=== PATIENT | male | born 1945 | race Caucasian/White ===

== ENCOUNTER 2018-09-21 07:15 | Inpatient (IN) | payer OTHER ==
[2018-09-19 11:16] LABS: PLATELET COUNT 208 10^3/uL (150-400)
--- NOTE | 2018-09-21 06:39 | PDHPUP ---
History & Physical Update H&P update statement: This history and physical update is based on an assessment of the patient which was completed after admission or registration (within 24 hours), but prior to the surgery/procedure. H&P update: H&P reviewed & patient examined, no change in patient's condition since H&P completed
--- NOTE | 2018-09-21 10:04 | PDANEPAE ---
ANE History of Present Illness back pain ANE Past Medical History - Cardiovascular History Hx Hypertension: No Hx Arrhythmias: No Hx Chest Pain: No Hx Coronary Artery / Peripheral Vascular Disease: No Hx CHF / Valvular Disease: No Hx Palpitations: No Cardiovascular History Comment: has been told occastionally has irregular heart beats but nothing followed or treated - Pulmonary History Hx COPD: No Hx Asthma/Reactive Airway Disease: No Hx Recent Upper Respiratory Infection: No Hx Oxygen in Use at Home: No Hx Sleep Apnea: No Sleep Apnea Screening Result - Last Documented: Negative Pulmonary History Comment: hx of pneumonia x 2 - Neurologic History Hx Cerebrovascular Accident: No Hx Seizures: No Hx Dementia: No Neurologic History Comment: hx of eye nystagmus in the past. neuropathic pain, numbness, tingling right leg, often uses crutches; left leg generally okay but does get occasional shooting pain down leg, bottom of left foot extremly painful - Endocrine History Hx Diabetes: No Hypothyroid: No Hyperthyroid: No Obesity: mild - Renal History Hx Renal Disorders: Yes Renal History Comment: enlarged prostate w/urinary retention - does need to self cath. Hx UTI's - Liver History Hx Hepatic Disorders: No - Neurological & Psychiatric Hx Hx Neurological and Psychiatric Disorders: Yes Neurological / Psychiatric History Comment: mild depression - Cancer History Hx Cancer: No - Congenital Disorder History Hx Congenital Disorders: No - GI History GERD: no Hx Gastrointestinal Disorders: No - Other Health History Other Health History: wears glasses for reading - Chronic Pain History Chronic Pain: Yes (low back, legs/feet) - Surgical History Prior Surgeries: C5-6 cervical fusion. punctured lung repair ANE Review of Systems Review of Systems: - Exercise capacity Exercise capacity: >=4 METS METS (RN): 6 METS ANE Patient History - Allergies Allergies/Adverse Reactions: Penicillins Allergy (Verified 08/26/18 09:49) Rash - Home Medications Home medications: home medication list seen and reviewed Home Medications: Acetamn/Diphenhydramine 500/25 [Tylenol PM (*)] 1 each PO HS PRN 08/26/18 [Last Taken 09/18/18] Herbals/Supplements -Info Only 1 ea PO DAILY 08/26/18 [Last Taken 09/19/18] oxyCODONE/APAP 5/325 [Percocet 5/325 (*)] 1 tab PO BID PRN 08/26/18 [Last Taken 09/20/18] - NPO status NPO Status: no food or drink >8 hours - Anes Hx Anes Hx: no prior problems - Smoking Hx Smoking Status: Former smoker - Family Anes Hx Family Hx Anesthesia Complications: none ANE Labs/Vital Signs - Labs Result Diagrams: 09/19/18 10:51 - Vital Signs Vital Signs: reviewed preoperatively; see RN documention for details Height: 185.42 cm Weight: 98.883 kg ANE Physical Exam - Airway Neck exam: FROM Mallampati Score: Class 2 Mouth exam: normal dental/mouth exam - Pulmonary Pulmonary: no respiratory distress - Cardiovascular Cardiovascular: regular rate and rhythym - ASA Status ASA Status: II ANE Anesthesia Plan Anesthesia Plan: general endotracheal anesthesia Lines/Monitors: arterial line
[2018-09-21] MEDS ORDERED: PROPOFOL/EMULSION 500 MG/50 ML BOTTLE IV ONE ×3 (12:27→14:42)
[2018-09-21] MEDS ORDERED: DEXAMETHASONE 4 MG/ML VIAL ONE ×2 (12:36)
[2018-09-21] MEDS ORDERED: ROCURONIUM 50 MG/5 ML VIAL ONE (12:36)
[2018-09-21] MEDS ORDERED: LIDOCAINE 2% 5 ML SDV ONE (12:36)
[2018-09-21] MEDS ORDERED: ONDANSETRON 4 MG/2 ML VIAL ONE (12:36)
[2018-09-21] MEDS ORDERED: CHLORHEXIDINE GLUC HIBICLENS 118 ML BTL TP ONE (12:39)
[2018-09-21] MEDS ORDERED: THROMBIN (BOVINE) 5,000 UNIT VIAL TP ONE (12:39)
[2018-09-21] MEDS ORDERED: BUPIVACAINE/EPI 0.25% 30 ML SDV ONE (12:40)
[2018-09-21] MEDS ORDERED: BACITRACIN 50,000 UNITS/10 ML SYR IRR ONE ×2 (12:42→16:11)
[2018-09-21] MEDS ORDERED: GABAPENTIN 300 MG CAP PO ONE (12:49)
[2018-09-21] MEDS ORDERED: ACETAMINOPHEN 500 MG TAB PO ONE (12:49)
[2018-09-21] MEDS ORDERED: ceFAZolin 2 GM/DEXTROSE 100 ML IV ONE (12:49)
[2018-09-21] MEDS ORDERED: LIDOCAINE 1% 2 ML INJ ID PRN (12:50)
[2018-09-21] MEDS ORDERED: LR 1,000 ML IV ONE (12:50)
[2018-09-21] MEDS ORDERED: MIDAZOLAM 2 MG/2 ML VIAL IVP ONE (13:27)
[2018-09-21] MEDS ORDERED: HYDROmorphONE/DILAUDID 6 MG/30 ML PCA IV PRN (13:32)
[2018-09-21] MEDS ORDERED: MIDAZOLAM 2 MG/2 ML VIAL ONE (13:32)
[2018-09-21] MEDS ORDERED: ACETAMN/DIPHENHYDRAMINE 500/25MG TAB PO PRN (13:32)
[2018-09-21] MEDS ORDERED: HYDROCODONE/APAP 5/325 TAB PO PRN (13:32)
[2018-09-21] MEDS ORDERED: ONDANSETRON DISINTEGRATING 4 MG TAB PO PRN (13:32)
[2018-09-21] MEDS ORDERED: NALOXONE HCL 0.4 MG/ML INJ IVP PRN ×2 (13:32→15:38)
[2018-09-21] MEDS ORDERED: diphenhydrAMINE 25 MG CAP PO PRN (13:32)
[2018-09-21] MEDS ORDERED: ONDANSETRON 4 MG/2 ML VIAL IVP PRN (13:32)
[2018-09-21] MEDS ORDERED: LACTULOSE 20 GM/30 ML UDCUP PO PRN (13:32)
[2018-09-21] MEDS ORDERED: POLYETHYLENE GLYCOL 3350 17 GM PKT PO PRN (13:32)
[2018-09-21] MEDS ORDERED: HYDROmorphONE/DILAUDID 1 MG/ML INJ IVP PRN (13:32)
[2018-09-21] MEDS ORDERED: BISACODYL 10 MG SUPP PR PRN (13:32)
[2018-09-21] MEDS ORDERED: MAGNESIUM HYDROXIDE 30 ML UDCUP PO PRN (13:32)
[2018-09-21] MEDS ORDERED: fentaNYL 250 MCG/5 ML INJ ONE (13:40)
[2018-09-21] MEDS ORDERED: NS 1,000 ML IV SCH (13:45)
--- NOTE | 2018-09-21 13:51 | PDMN ---
Medical Necessity Medical necessity: Pt meets IP criteria as of 09/21/2018 per and [facility] S-820 ( Lumbar fusion); Medicare IP only procedure
[2018-09-21] MEDS ORDERED: PHENYLEPHRINE HCL 100 MCG/ML SYR ONE (14:37)
[2018-09-21] MEDS ORDERED: ePHEDrine SULFATE 25 MG/5 ML SYR ONE (15:10)
[2018-09-21] MEDS ORDERED: PHENYLEPHRINE HCL 100 MCG/ML SYR IVP PRN (15:38)
[2018-09-21] MEDS ORDERED: oxyCODONE IR 5 MG TAB PO PRN (15:38)
[2018-09-21] MEDS ORDERED: LR 500 ML IV PRN (15:38)
[2018-09-21] MEDS ORDERED: HYDROmorphONE/DILAUDID 2 MG/ML INJ IVP PRN (15:38)
[2018-09-21] MEDS ORDERED: PROMETHAZINE HCL 25 MG/ML INJ IVP PRN (15:38)
[2018-09-21] MEDS ORDERED: ALBUTEROL 3 ML DEYVIAL IH PRN (15:38)
[2018-09-21] MEDS ORDERED: DIAZEPAM 5 MG/ML 1 ML SYR IVP PRN (15:38)
[2018-09-21] MEDS ORDERED: LABETALOL HCL 20 MG/4 ML INJ IVP PRN (15:38)
[2018-09-21] MEDS ORDERED: ACETAMINOPHEN 500 MG TAB PO PRN (15:38)
[2018-09-21] MEDS ORDERED: METOCLOPRAMIDE 10 MG/2 ML VIAL IVP PRN (15:38)
[2018-09-21] MEDS ORDERED: MEPERIDINE 25 MG/0.5 ML AMP IVP PRN (15:38)
[2018-09-21] MEDS ORDERED: fentaNYL 100 MCG/2 ML INJ IVP PRN (15:38)
[2018-09-21] MEDS ORDERED: HYDROmorphONE/DILAUDID 2 MG/ML INJ ONE (15:44)
[2018-09-21] MEDS ORDERED: PROPOFOL 200 MG/20 ML VIAL ONE ×3 (16:46→17:31)
--- NOTE | 2018-09-21 18:19 | POSTOPPROG ---
Post Op Note Date of Operation: 09/21/18 Surgeon: Belinda Vázquez Supervisor Cytology: AMA Ariza Anesthesiologist: MD Angelo Anesthesia: GET(General Endotracheal), Local (Specify) Pre-op Diagnosis: lumbar stenosis L3/4 L4/5 Post-op Diagnosis: lumbar stenosis L3/4 and L4/5 Indication: LE pain with LLE>RLE pain Procedure: TLIF L3/4 and L4/5 Findings: see op report Inf/Abcess present in the surg proc area at time of surgery?: No Depth: Deep Incisional (Fascial) EBL: 100-500 Total fluids administered: see anesthesia record Complications: none Drains: Butch Hatfield
--- NOTE | 2018-09-21 18:23 | SOAPPROG ---
SOAP Progress Note Assessment/Plan: Post Op Visit: S: Awake and alert. Pt with expected lower back pain O: AFVSS/PERRLA/EOMI no droop CN 2-12 grossly intact SAUL x [address] A/P: 72 yo male that is s/p TLIF L3/4 and L4/5 -orders in place -call with any questions or concerns -take medications as directed -wear brace as directed -call with any questions or concerns Objective: Vital Signs Temp Pulse Resp BP Pulse Ox 36.6 C 77 18 175/101 H 96 09/21/18 12:54 09/21/18 12:54 09/21/18 12:54 09/21/18 12:54 09/21/18 12:54 Laboratory Results 09/19/18 10:51 ICD10 Worksheet Patient Problems: Problems Problem Status Onset Arthrodesis status Acute Lumbar radicular pain Acute Lumbar stenosis Acute - ICD10 Problem Qualifiers (1) Lumbar stenosis Qualifiers: Neurogenic claudication status: without neurogenic claudication Qualified Code(s): M48.061 - Spinal stenosis, lumbar region without neurogenic claudication (2) Lumbar radicular pain (3) Arthrodesis status
--- NOTE | 2018-09-21 18:52 | POSTANESTH ---
Post Anesthetic Evaluation Cardiovascular Status: Normal, Stable Respiratory Status: Normal, Stable Level of Consciousness/Mental Status: Can Participate in Eval Pain Control: Adequate, Prn Tx Ordered Nausea/Vomiting Control: Adequate, Prn Tx Ordered Complications Possibly Related to Anesthesia: None Noted
--- NOTE | 2018-09-21 19:19 | GOP ---
DATE OF OPERATION: 09/21/2018 SURGEON: Cherrie Vázquez MD NEUROSURGEON: Cherrie Vázquez MD TOWER HAND: Bharat Ariza PA-C. PREOPERATIVE DIAGNOSIS: Lumbar spondylolisthesis with severe foraminal stenosis right L4-5 with a ri ght L4 radiculopathy, left lateral recess stenosis, left foraminal stenosis, and a left-sided radicul opathy L3-4, spinal stenosis L4-5. POSTOPERATIVE DIAGNOSIS: Lumbar spondylolisthesis with severe foraminal stenosis right L4-5 with a r ight L4 radiculopathy, left lateral recess stenosis, left foraminal stenosis, and a left-sided radicu lopathy L3-4, spinal stenosis L4-5. PROCEDURE PERFORMED: Posterior lateral and intervertebral arthrodesis with bilateral decompression a t L3-4, L4-5 with a right-sided transforaminal lumbar interbody fusion at L4-5 and a left-sided trans foraminal lumbar interbody fusion at L3-4 (08059, 42680), posterior segmental instrumentation at L3, L4, L5, same incision bone graft harvest, microscope, placement of biomechanical intervertebral devic e L3-4, L4-5 (50918 x2). FINDINGS: Consistent with the diagnosis. SPECIMENS: None. ESTIMATED BLOOD LOSS: 350 cc. INDICATIONS: The patient had terrible bilateral lumbosacral radiculopathy, but a longstanding histor y of right-sided pain that is relentless and unresponsive to conservative measures with severe right foraminal at L4-5 with spondylolisthesis at that level and complete collapse, as well as a large fora estephania disk prolapse at that level crushing the right L4 nerve root between the pedicle of L4 and the disk at L4-5. He has on interval MRI developed more severe left lateral recess stenosis at L3-4 and has some left foraminal stenosis at that level, and I suggested a 2-level instrumented fusion at L3-4 , L4-5 to manage his bilateral lumbosacral radiculopathy. The risk of screw and hardware malposition , malfunction was discussed. He knew there was risk of CSF leak, nerve injury, continued symptoms. He knew surgery might not even work. He knew there was risk of pseudoarthrosis, as well as the possi ble need for revision surgery, as well as infection. He wanted to proceed despite these known risks. DESCRIPTION OF PROCEDURE: The patient was taken to the operating room, placed in supine position. G eneral anesthesia was begun. He was flipped prone onto the Butch table. Care was taken to pad all points of contact. His back was sterilely prepped and draped in the usual fashion. A localizing x- ray taken. We made a midline incision. Our initial incision was about 6 cm in length. The subcutaneous tissue was dissected using Bovie cautery down to the fascia and a subperiosteal dissection was made down the inferior lamina of L2, the lamina of L3, 4, and L5 was exposed. Self-retaining retractor was placed . We shot a localizing x-ray. We then denuded and removed the hypertrophic facets bilaterally at L3 -4, L4-5. We preserved the L2-3 facet joint. We attached the [place] reference frame and then performed an O-arm spin. We used stereotaxy to plac e bilateral pedicle screws at L3, L4, and L5, and they all stimulated at acceptable levels. We verif ied their position with 3 dimensional imaging on the O arm system. They were in great position. We then took a 65 mm zoltan on the right and a 60 mm zoltan on the left, bent the rods and placed down over th e tulips. We distracted on the right at L4-5 and a little bit more on the left at L3-4 to open the n eural foramen at each of those levels. We final tightened the cap screws according to company specif ication. We then denuded and removed all the soft tissue of the bone from the L3, L4, and rostral L5 spinous process. We then harvested the complete L4 spinous process. We harvested the inferior L3 s pinous process. We then drilled bilateral laminectomies at L3-4, L4-5. We performed complete right- sided facetectomies at L4-5 and a complete left sided facetectomy at L3-4. Under the microscope, we opened the ligamentum flavum and decompressed the thecal sac beginning at th e L4-5 level and working our way rostrally to the L3-4 level. There was really very severe spinal st enosis present and we got great decompressions bilaterally at L3-4. It was more of a struggle to get complete decompression of L4-5 as the hypertrophic facets at L4-5 were very adherent to the dura. T o deal with this, we drilled off the rostral arch of L5, fractured the rostral lamina, and then I pul led it rostrally off the dura and got great separation using this technique. We performed an excellent lateral recess decompression on the patient's left side. We performed a co mplete right-sided facetectomy at L4-5. The exiting L4 nerve root at the L4-5 level was totally eliel hed by foraminal disk. It was totally prolapsed into the nerve, but there was now a more room becaus e we had elevated the L4 pedicle up off the disk. We incised the foraminal disk and then in a subann ular fashion, pulled out a large amount of disk material out of the foramina, itself, relaxing the ex iting L4 nerve root. This is really separate from the TLIF, although we were going to use this acces s to do the TLIF, we did in 2 separate maneuvers. I did this from the patient's left-hand side, reac nathan across into the neural foramina and got a great decompression of the exiting L4 root. I then turned my attention and did a left-sided TLIF at L3-4, removing the 3-4 disk and the cartilagi nous endplate. We roughened the subchondral bone to create arthrodesis at L3-4, and we were now read y for placement of our biomechanical intervertebral device at that level. I then went back to the L4 -5 level where I incised the L4-5 disk and removed the disk completely and the cartilaginous endplate s, roughened the subchondral bone to create arthrodesis there. I sized both of them for placement of our device and chose a 9 mm at L4-5 and an 8 mm expandable device at L3-4. They were both 20 mm in length. I placed a large amount of bone autograft and BMP into each of the disk space. We used 2 mg in the disk spaces, 2 mg posterolaterally. We inserted our devices and expanded them under fluorosc opic guidance, and I was happy with the positioning of the devices. We then decorticated all the remaining posterolateral bone bilaterally to conclude our arthrodesis an d then laid bone autograft and BMP posterolaterally bilaterally, placed a subfascial drain, and then closed the incision in multiple layers using Vicryl sutures. A running PDS was placed in the skin, i tself. The patient was reversed from anesthesia, extubated, and transferred to recovery room in stab le condition. There were no complications. COMPLICATIONS: None. INSTRUMENTATION USED: to betronic Solera 5.5 mm system with expandable Elevate cages at L3-4, L4-5. W e used 9 mm cage at L4-5 and an 8 mm expandable cage at L3-4. /[id number]/MODL
[2018-09-21] MEDS: GABAPENTIN 300 MG CAP PO SCH ×2 (19:48→22:14)
[2018-09-21] MEDS: ACETAMINOPHEN 500 MG TAB PO SCH ×2 (19:48→22:14)
[2018-09-21] MEDS: SENNOSIDES/DOCUSATE SODIUM TAB PO SCH (20:06)
[2018-09-21] MEDS: FAMOTIDINE 20 MG TAB PO SCH (20:06)
[2018-09-21] MEDS: ceFAZolin 2 GM/DEXTROSE 100 ML IV SCH (22:14)
[2018-09-22 05:43] LABS: PLATELET COUNT 205 10^3/uL (150-400)
[2018-09-22] MEDS: ACETAMINOPHEN 500 MG TAB PO SCH ×3 (05:50→22:33)
[2018-09-22] MEDS: GABAPENTIN 300 MG CAP PO SCH ×3 (05:50→21:11)
[2018-09-22] MEDS: ceFAZolin 2 GM/DEXTROSE 100 ML IV SCH (05:51)
--- NOTE | 2018-09-22 07:32 | NEUSURGPN ---
Date of Surgery: 09/21/18 Post Op Day: 1 Assessment/Plan: Assessment: 72 yo male that is s/p TLIF L3/4 and L4/5 POD #1 Plan: -s/p L spine fusion: doing well this am. Legs feel better. Pt with expected lower back pain -pt is not on any pain medications thru night -continue with current pain management -PT/OT ordered -brace when out of bed -orders in place -call with any questions or concerns -take medications as directed -call with any questions or concerns -pt seen by Dr Vázquez Subjective: Awake and alert. NAD. Eating/drinking. No f/c/n/v/d. No other complaints or concerns. Objective: AFVSS/PERRLA/EOMI no droop CN 2-12 grossly intact 5/5 BUE/BLE = CDI MARIANNE in place Neuro Check Frequency: per routine Urinary Catheter in Place: Yes Urinary Catheter Indication: Other (Use Comment) (pt straight caths prior to admit. Will remove today once shows with straight cath equipment) Catheter Insertion Date: 09/21/18 - Physician Discussed Patient with DrScot: Gurpreet Patient Seen by : Gurpreet Neurosurgery Physical Exam - Vitals, I&O, Labs I and O 09/21/18 09/22/18 09/23/18 05:59 05:59 05:59 Intake Total 3810 Output Total 2460 Balance 1350 Weight 102.5 kg Intake: Oral (ml) 680 IV Intake (ml) 2200 IV Infused (ml) 930 Ns 1,000 ml @ 100 mls/hr 930 IV CONT ARABELLA Rx#: [id number] Output: Urine (ml) 1800 Catheter 1800 Estimated Blood Loss (ml) 350 MARIANNE Drain Output (ml) 310 Back [place]ch [place] 310 Vital Signs Temp Pulse Resp BP Pulse Ox 36.4 C 64 16 107/67 100 09/22/18 06:00 09/22/18 06:00 09/22/18 06:00 09/22/18 06:00 09/22/18 06:00 Laboratory Results 09/22/18 05:22 09/22/18 05:22 ICD10 Worksheet Patient Problems: Problems Problem Status Onset Arthrodesis status Acute Lumbar radicular pain Acute Lumbar stenosis Acute - ICD10 Problem Qualifiers (1) Lumbar stenosis Qualifiers: Neurogenic claudication status: without neurogenic claudication Qualified Code(s): M48.061 - Spinal stenosis, lumbar region without neurogenic claudication (2) Lumbar radicular pain (3) Arthrodesis status
[2018-09-22] MEDS: FAMOTIDINE 20 MG TAB PO SCH ×2 (09:01→21:12)
[2018-09-22] MEDS: SENNOSIDES/DOCUSATE SODIUM TAB PO SCH ×2 (09:01→21:12)
--- NOTE | 2018-09-22 09:26 | ASMTCASEMG ---
Living Arrangements What is your living Answers: With Spouse arrangement? Who do you live with? Type Of Residence What kind of residence do Answers: House you live in? Discharge Plan Comments Coordination Status Comments Notes: Patient is a 72yo male who was admitted for a two level TLIF at L34 45 sugical intervention. OT/PT have been ordered. Patient lives in [place]. D/C plan TBD. CM will follow. Date Signed: 09/22/2018 09:25 AM Electronically Signed By:Kalyani James LCSW
[2018-09-22] MEDS: oxyCODONE IR 5 MG TAB PO PRN (21:12)
[2018-09-22] MEDS: ZOLPIDEM TARTRATE 5 MG TAB PO PRN ×2 (22:31→22:32)
[2018-09-23] MEDS: oxyCODONE IR 5 MG TAB PO PRN ×6 (02:56→22:06)
[2018-09-23] MEDS: METHOCARBAMOL 750 MG TAB PO PRN ×3 (02:56→17:21)
--- NOTE | 2018-09-23 05:40 | NEUSURGPN ---
Assessment/Plan: DRAFT!! Assessment: 72 yo male that is s/p TLIF L3/4 and L4/5 POD #2 Plan: -s/p L spine fusion: doing well this am. Some right leg anterior thigh burning Pt with expected lower back pain -continue with current pain management -PT/OT -LSO when out of bed -MARIANNE drain will d/c today - Continue straight cath per patient protocol -call with any questions or concerns Subjective: Pain tolerable with medications Objective: NAD A&Ox3 MAEX4 5/5 and equal on BUE and BLE. Incision c/d/i. Catheter Insertion Date: 09/21/18 - Physician Discussed Patient with : Gurpreet Neurosurgery Physical Exam - Vitals, I&O, Labs I and O 09/21/18 09/22/18 09/23/18 05:59 05:59 05:59 Intake Total 3810 1000 Output Total 2460 3485 Balance 1350 -2485 Weight 102.5 kg Intake: Oral (ml) 680 1000 IV Intake (ml) 2200 IV Infused (ml) 930 Ns 1,000 ml @ 100 mls/hr 930 IV CONT ARABELLA Rx#: [id number] Output: Urine (ml) 1800 3300 Catheter 1800 3300 Estimated Blood Loss (ml) 350 MARIANNE Drain Output (ml) 310 185 Back Butch [place] 310 185 Other: Number of Voids Catheter 1 Vital Signs Temp Pulse Resp BP Pulse Ox 36.8 C 71 12 133/75 H 95 09/23/18 03:03 09/23/18 03:03 09/23/18 03:03 09/23/18 03:03 09/23/18 03:03 Laboratory Results 09/22/18 05:22 09/22/18 05:22 ICD10 Worksheet Patient Problems: Problems Problem Status Onset Arthrodesis status Acute Lumbar radicular pain Acute Lumbar stenosis Acute
[2018-09-23] MEDS: GABAPENTIN 300 MG CAP PO SCH ×3 (06:24→22:02)
[2018-09-23] MEDS: ACETAMINOPHEN 500 MG TAB PO SCH ×2 (06:24→14:19)
[2018-09-23] MEDS: FAMOTIDINE 20 MG TAB PO SCH ×2 (08:29→22:05)
[2018-09-23] MEDS: SENNOSIDES/DOCUSATE SODIUM TAB PO SCH ×2 (08:29→22:05)
[2018-09-23] MEDS ORDERED: PNEUMOC 13-VAL CONJ-DIP CRM/PF 0.5 ML SYR (PREVNAR 13) IM ONE ×3 (12:11→22:00)
--- NOTE | 2018-09-23 12:21 | ASMTCMCOM ---
CM Note CM Note Notes: Pt pre-arranged with [facility], is amenable to home care. Carla with [facility] to meet with pt today. D/c plan of care: Home with [facility] Date Signed: 09/23/2018 12:21 PM Electronically Signed By:ROBBIE Clayton
[2018-09-23] MEDS: ZOLPIDEM TARTRATE 5 MG TAB PO PRN (22:05)
[2018-09-24] MEDS: ACETAMINOPHEN 500 MG TAB PO SCH ×4 (01:53→21:16)
[2018-09-24] MEDS ORDERED: PNEUMOC 13-VAL CONJ-DIP CRM/PF 0.5 ML SYR (PREVNAR 13) IM ONE (01:56)
[2018-09-24] MEDS: oxyCODONE IR 5 MG TAB PO PRN ×5 (02:53→22:35)
[2018-09-24] MEDS: METHOCARBAMOL 750 MG TAB PO PRN ×3 (02:55→18:33)
[2018-09-24] MEDS: GABAPENTIN 300 MG CAP PO SCH ×3 (05:06→21:15)
[2018-09-24] MEDS: SENNOSIDES/DOCUSATE SODIUM TAB PO SCH ×2 (08:08→21:17)
[2018-09-24] MEDS: FAMOTIDINE 20 MG TAB PO SCH ×2 (08:09→21:17)
[2018-09-24] MEDS: ENOXAPARIN 40 MG/0.4 ML SYR SC SCH (08:10)
--- NOTE | 2018-09-24 12:50 | NEUSURGPN ---
Date of Surgery: 09/21/18 Post Op Day: 3 Assessment/Plan: Assessment: 72 yo male that is s/p TLIF L3/4 and L4/5 POD #3 Plan: -s/p L spine fusion: Some bilateral leg anterior thigh burning right >left. Pt with expected lower back pain. Will give more time for leg symptoms to improve -continue with current pain management -PT/OT -LSO when out of bed -Continue straight cath per patient protocol -call with any questions or concerns Discussed patient with Dr Vázquez Subjective: Right quad burning with movement Objective: AxO x4 EVANS x4 5/5 BLE Incision CDI with steri strips Neuro Check Frequency: per routine Urinary Catheter in Place: No Catheter Insertion Date: 09/21/18 - Physician Discussed Patient with : Gurpreet Neurosurgery Physical Exam - Vitals, I&O, Labs I and O 09/23/18 09/24/18 09/25/18 05:59 05:59 05:59 Intake Total 1200 800 350 Output Total 3485 1950 850 Balance -2285 -1150 -500 Intake: Oral (ml) 1200 800 350 Output: Urine (ml) 3300 1950 850 Catheter 3300 1950 850 MARIANNE Drain Output (ml) 185 Back Butch [place] 185 Other: Intake Quantity Yes Yes Yes Sufficient Number of Voids Catheter 1 1 1 Vital Signs Temp Pulse Resp BP Pulse Ox 36.6 C 81 14 134/79 H 94 09/24/18 11:49 09/24/18 11:49 09/24/18 11:49 09/24/18 11:49 09/24/18 11:49 Laboratory Results 09/22/18 05:22 09/22/18 05:22 ICD10 Worksheet Patient Problems: Problems Problem Status Onset Arthrodesis status Acute Lumbar radicular pain Acute Lumbar stenosis Acute
[2018-09-24] MEDS ORDERED: DIAZEPAM 5 MG TAB PO PRN (13:23)
[2018-09-24] MEDS: PREGABALIN 75 MG CAP PO SCH ×2 (18:33→21:18)
[2018-09-24] MEDS: ZOLPIDEM TARTRATE 5 MG TAB PO PRN (22:36)
[2018-09-25] MEDS: ACETAMINOPHEN 500 MG TAB PO SCH ×2 (05:35→13:11)
[2018-09-25] MEDS: GABAPENTIN 300 MG CAP PO SCH ×2 (05:36→13:12)
[2018-09-25] MEDS: oxyCODONE IR 5 MG TAB PO PRN ×2 (05:36→13:13)
--- NOTE | 2018-09-25 08:18 | NEUSURGPN ---
Date of Surgery: 09/21/18 Post Op Day: 4 Assessment/Plan: Assessment: 72 yo male that is s/p TLIF L3/4 and L4/5 POD #4 Plan: -s/p L spine fusion: Some bilateral leg anterior thigh burning right >left which is improved some today. Will continue to give more time for leg symptoms to improve. -continue with current pain management, Lyrica added last night -PT/OT -LSO when out of bed -Continue straight cath per patient protocol -Discharge home with Home Health this afternoon -call with any questions or concerns Discussed patient with Dr Vázquez Subjective: leg pain improved compared to yesterday, able to ambulate better Objective: AxO x4 EVANS x4 5/5 BLE Incision CDI with steri strips Neuro Check Frequency: per routine Urinary Catheter in Place: No Catheter Insertion Date: 09/21/18 - Physician Discussed Patient with : Gurpreet Neurosurgery Physical Exam - Vitals, I&O, Labs I and O 09/24/18 09/25/18 09/26/18 05:59 05:59 05:59 Intake Total 800 350 Output Total 1950 3425 Balance -1150 -3075 Intake: Oral (ml) 800 350 Output: Urine (ml) 1950 3425 Catheter 1950 3425 Other: Intake Quantity Yes Yes Sufficient Number of Voids Catheter 1 1 Number of Stools Catheter 1 Vital Signs Temp Pulse Resp BP Pulse Ox 36.9 C 82 16 126/74 H 95 09/25/18 03:36 09/25/18 03:36 09/25/18 03:36 09/25/18 03:36 09/25/18 03:36 Laboratory Results 09/22/18 05:22 09/22/18 05:22 ICD10 Worksheet Patient Problems: Problems Problem Status Onset Arthrodesis status Acute Lumbar radicular pain Acute Lumbar stenosis Acute
--- NOTE | 2018-09-25 08:24 | PDIAF ---
- Diagnosis Diagnosis: s/p Lumbar fusion Code Status: Full Code - Medication Management Discharge Medications: electronically signed and located in the Home Medication List. PICC Care - Routine: N/A - Orders Services needed: Home Care, Physical Therapy, Occupational Therapy Home Care Face to Face: I certify that this patient was under my care and that I had the required [id number] encounter meeting the encounter requirements on the discharge day. My findings support the fact that the patient is homebound as defined in Home Care Face to Face Continued: CMS Chapter 7 Medicare Benefits Manual 30.1.1 , The condition of the patient is such that there exists a normal inability to leave home and consequently, leaving home would require a considerable and taxing effort. Diet Recommendation: no restrictions on diet Diet Texture: Regular Texture Diet Wound Care Instructions: leave steri strips in place, ok to shower. Do not submerge incision Activity/Weight Bearing Restrictions: Do not lift greater than 10 pounds. No bending or twisting Equipment: Wear brace when out of bed Additional Instructions: No bending or twisting Do not lift greater than 10 pounds Wear brace when out of bed Ok to shower, leave steri strips in place - Follow Up Care Current Providers and Referrals: Zain Shook MD [Primary Care Provider] - Belinda Vázquez MD [Medical Doctor] - follow up in 2 weeks
[2018-09-25 08:35] VITALS: BP 115/75
[2018-09-25] MEDS: SENNOSIDES/DOCUSATE SODIUM TAB PO SCH (09:49)
[2018-09-25] MEDS: PREGABALIN 75 MG CAP PO SCH (09:49)
[2018-09-25] MEDS: ENOXAPARIN 40 MG/0.4 ML SYR SC SCH (09:50)
[2018-09-25] MEDS: FAMOTIDINE 20 MG TAB PO SCH (09:50)
--- NOTE | 2018-09-26 14:20 | ASMTLACE ---
NICHOLAS Length of stay for Answers: 3 days current admission Acuity / Level of Answers: Yes Care: Did the patient have an inpatient admission? Comorbidities - select Answers: Opioid dependence all that apply / Chronic pain Other Notes: Hx of UTIs # of Emergency department Answers: 0 visits in the last 6 months Social determinants Answers: Mental health diagnosis (anxiety, depression, pers onality disorders, etc.) Score: 14 Date Signed: 09/25/2018 01:00 PM Electronically Signed By:Carla Sarmiento RN
--- NOTE | 2018-09-27 08:25 | GDS ---
PRIMARY DIAGNOSES: Lumbar spondylolisthesis and severe foraminal stenosis right L4-5, right L4 radic ulopathy, left lateral recess stenosis, left foraminal stenosis, left sided radiculopathy L3-4, and s kim stenosis at L4-5. OPERATION/PROCEDURE: Posterior lateral intervertebral arthrodesis and bilateral decompression L3-4 a nd L4-5, right-sided transforaminal lumbar interbody fusion at L4-5, and a left-sided transforaminal lumbar interbody fusion L3-4, posterior segmental instrumentation at L3, L4, L5, with same incision b one graft harvest, placement of biomechanical intervertebral device at L3-4 and L4-5. This procedure occurred with Dr. Hudson Vázquez on 09/21/2018, at [facility]. HOSPITAL COURSE: The patient is a gentleman who saw us in the office with terrible bilateral lumbosa cral radiculopathy with a longstanding history of right-sided pain. This was relentless and unrespon sive to conservative measures. He had severe right foraminal stenosis at L4-5 with spondylolisthesis at that level. There was complete collapse of the L4-5 level. This caused severe compression of th e right L4 nerve root. On an interval MRI developed more severe left lateral recess stenosis at L3-4 . The patient underwent extensive conservative management for this and failed to improve with conser vative management, itself. We recommended L3-4, L4-5 TLIF. He understood this and wished to proceed . Risks were discussed with the patient prior to surgery. He underwent the above-mentioned procedur e and tolerated it well. He was admitted postoperatively on 09/22/2018. He had postoperative x-rays of the lumbar spine, whic h showed new L3 through L5 fusion. No complications were noted. Patient worked with PT and OT, was seen on a daily basis. On 09/25/2018, he met criteria for discharge and was discharged home with [facility]. He had an LSO brace that was fit and will wear whenever out of bed. He was discharged [facility] with home health. He will follow up with us likely in 2 weeks, then at 2 months with x-rays, 3 to 6 months, 9 months to a year, and year and a half in 2 years with x-rays when clinically appropriate to ensure radiographic fusion. CONSULTATION: None. COMPLICATIONS: None. DISCHARGE CONDITION: Stable and improved. DISCHARGE INSTRUCTIONS: Standard discharge instructions were given to the patient following instrume nted lumbar fusion. We talked about worsening symptoms, new pain, weakness, numbness, tingling, loss of bowel or bladder control, problems with gait or balance. He will follow up with us as directed teresa pitts. We talked about worsening symptoms. We recommend no use of anti-inflammatories. No bending o r twisting. He will wear his brace whenever out of bed. He was discharged home with pain medication and muscle relaxant, please see medication reconciliation form. /[id number]/MODL
--- NOTE | 2018-09-29 08:46 | ASDISCHSUM ---
Discharge Information Plan Status: Medically Cleared to Leave: Discharge Date:09/25/2018 01:33 PM CM D/C Disposition: ADT D/C Disposition:[id number] Projected Discharge Date:09/25/2018 11:00 AM Transportation at D/C: Discharge Delay Reason: Follow-Up Date:09/25/2018 11:00 AM Discharge Slot: Final Diagnosis: Placement Information Referral Type:*Home Health Care Services Referral ID:[facility]-[id number] Provider Name:[facility]) [address] [address] Address 2: City:[place] Selection Factors: State:[place] Patient Contact Information Contact Name:MEGA Relationship: Address:[address] City:[place] Alternate Phone: State/Zip Code:[place] [address] Email: Financial Information Financial Class:Medicare Primary Plan Desc:MEDICARE INPATIENT Primary Plan Number:[id number] Secondary Plan Desc:[employer] [place] Secondary Plan Number:[id number] Assessment Information LACE LACE Length of stay for Answers: 3 days current admission Acuity / Level of Answers: Yes Care: Did the patient have an inpatient admission? Comorbidities - select Answers: Opioid dependence all that apply / Chronic pain Other Notes: Hx of UTIs # of Emergency department Answers: 0 visits in the last 6 months Social determinants Answers: Mental health diagnosis (anxiety, depression, pers onality disorders, etc.) Score: 14 Date Signed: 09/25/2018 01:00 PM Electronically Signed By:Carla Sarmiento RN [facility] Initial CM Assessment Living Arrangements What is your living Answers: With Spouse arrangement? Who do you live with? Type Of Residence What kind of residence do Answers: House you live in? Discharge Plan Comments Coordination Status Comments Notes: Patient is a 72yo male who was admitted for a two level TLIF at L34 45 sugical intervention. OT/PT have been ordered. Patient lives in [place]. D/C plan TBD. CM will follow. Date Signed: 09/22/2018 09:25 AM Electronically Signed By:Kalyani James LCSW [facility] CM Progress Note CM Note CM Note Notes: Pt pre-arranged with [facility], is amenable to home care. Carla with [facility] to meet with pt today. D/c plan of care: Home with [facility] Date Signed: 09/23/2018 12:21 PM Electronically Signed By:ROBBIE Clayton Case Management Discharge Plan Note Case Management Discharge Discharge Order Complete? Answers: Yes Patient to Obtain Answers: Independently Medications Transportation Arranged Answers: Family/Friends Faxed Final Orders Answers: Yes Agency/Facility Transfer Answers: Yes Report Printed & Faxed to Receiving Agency Family Notified Answers: Yes Discharge Comments Notes: Pt had arranged for homecare with Carla Liu notified. Final orders faxed. Intervention Information Intervention Type:*IM-Signed Date of Service:09/23/2018 03:00 PM Patient Type:Inpatient Staff Member:Dona Gil Hours: Discipline: Severity: Comment:
== END 2018-09-25 13:33 | disposition home health service (06) | DRG 455 ==
LOC: F3E 11:58 → F2N 19:30 → F3N 09-22 14:34
PROVIDERS: ADMIT Neurological Surgery; ATTEND Neurological Surgery
DX: M43.16 Spondylolisthesis, lumbar region (principal); M51.16 Intervertebral disc disorders with radiculopathy, lumbar region; M48.061 Spinal stenosis, lumbar region without neurogenic claudication; N40.1 Benign prostatic hyperplasia with lower urinary tract symptoms; R33.9 Retention of urine, unspecified; Z23 Encounter for immunization; Z98.1 Arthrodesis status; Z87.891 Personal history of nicotine dependence
CPT/HCPCS: 97116-GP; 97161-GP; 97165-GO; 97530-GP; 97535-GO; C1713; G0009; G8978-GP-CJ; G8979-GP-CH; G8987-GO-CJ; G8988-GO-CI; J0690; J1100; J1170; J1650; J2250; J2370; J2405; J2704; J3010